=== PATIENT | female | born 2000 | race Caucasian/White ===

== ENCOUNTER 2019-01-15 19:41 | Emergency (ER) | payer BC ==
--- NOTE | 2019-01-15 19:43 | PDOC ---
History of Present Illness - General Chief Complaint: Pain Stated Complaint: FLANK PAIN RADIATING TO RIGHT SIDE X 1 WEEK Time Seen by Provider: 01/15/19 19:43 *DC/Admit/Observation/Transfer - Discharge Dispostion Condition at time of disposition: Stable - Referrals - Patient Instructions - Post Discharge Activity
[2019-01-15 19:55] VITALS: BP 138/93; PULSE 92; TEMP 98.7; BMI 19.5
[2019-01-15 20:02] LABS: EPITHELIAL CELLS MODERATE /hpf
--- NOTE | 2019-01-16 00:19 | PDOC ---
Documentation entered by Gricelda Loaiza SCRIBE, acting as scribe for Cathy Goff MD. Cathy Goff MD: This documentation has been prepared by the jamileJosse Aiswarya, SCRIBE, under my direction and personally reviewed by me in its entirety. I confirm that the documentation accurately reflects all work, treatment, procedures, and medical decision making performed by me. History of Present Illness - General Chief Complaint: Pain Stated Complaint: FLANK PAIN RADIATING TO RIGHT SIDE X 1 WEEK Time Seen by Provider: 01/15/19 19:43 - History of Present Illness Initial Comments: 01/15/19 21:14 The patient is a 19 year old female, with no significant PMH, who presents to the emergency department with abdominal pain that began one week ago. The patient states abdominal pain began on the left upper quadrant for 3 days but pain currently moved to the right upper quadrant radiating to the back. She describes pain as constant, sharp, and sore in nature. Patient states pain is exacerbated with movement, no relief with Tylenol. She had a few days of dysuria last week that resolved spontaneously The patient denies fever, chills , nausea, vomiting, diarrhea and constipation.Denies dysuria, frequency, urgency and hematuria currently . Allergies: NKDA Past surgical history: None reported Social history: None reported PCP: None reported Past History - Past Medical History Allergies/Adverse Reactions: Allergies Allergy/AdvReac Type Severity Reaction Status Date / Time No Known Allergies Allergy Verified 01/15/19 19:43 Home Medications: Ambulatory Orders levoFLOXacin [Levaquin -] 500 mg PO DAILY #7 tablet 01/15/19 Review of Systems - Review of Systems Able to Perform ROS?: Yes Comments:: 01/15/19 21:14 GENERAL/CONSTITUTIONAL: No fever or chills. No weakness. HEAD, EYES, EARS, NOSE AND THROAT: No change in vision. No ear pain or discharge. No sore throat. CARDIOVASCULAR: No chest pain or shortness of breath. RESPIRATORY: No cough, wheezing, or hemoptysis. GASTROINTESTINAL:+right side abdomen pain . No nausea, vomiting, diarrhea or constipation. GENITOURINARY: No dysuria, frequency, or change in urination. MUSCULOSKELETAL: No joint or muscle swelling or pain. No neck or back pain. SKIN: No rash NEUROLOGIC: No headache, vertigo, loss of consciousness, or change in strength/ sensation. ENDOCRINE: No increased thirst. No abnormal weight change. HEMATOLOGIC/LYMPHATIC: No anemia, easy bleeding, or history of blood clots. ALLERGIC/IMMUNOLOGIC: No hives or skin allergy. *Physical Exam - Vital Signs Last Vital Signs Temp Pulse Resp BP Pulse Ox 98.7 F 92 H 16 138/93 100 01/15/19 19:46 01/15/19 19:46 01/15/19 19:46 01/15/19 19:46 01/15/19 19:46 - Physical Exam Comments: 01/15/19 21:14 GENERAL: Awake, alert, and fully oriented, in no acute distress HEAD: No signs of trauma LUNGS: Breath sounds equal, clear to auscultation bilaterally. No wheezes, and no crackles HEART: Regular rate and rhythm, normal S1 and S2, no murmurs, rubs or gallops ABDOMEN:+Right upper quadrant flank tenderness without Castro signs. No other tenderness, masses, guarding, or rebound tenderness. Significant marked right CVA tenderness. EXTREMITIES: Normal range of motion, no edema. No clubbing or cyanosis. No cords, erythema, or tenderness NEUROLOGICAL: Cranial nerves II through XII grossly intact. Normal speech, normal gait SKIN: Warm, Dry, normal turgor, no rashes or lesions noted. ED Treatment Course - ADDITIONAL ORDERS Additional order review: Laboratory Results 01/15/19 01/15/19 19:50 19:50 Urine Color Yellow Urine Appearance Clear Urine pH 7.5 Urine Protein Negative Urine Glucose (UA) Negative Urine Ketones Negative Urine Blood 1+ H Urine Nitrite Negative Urine Bilirubin Negative Urine Urobilinogen 0.2 Ur Leukocyte Esterase 1+ Urine RBC 10-20 Urine WBC 20-40 Ur Transition Epith Cell Moderate Urine Bacteria Few Urine HCG, Qual Negative Medical Decision Making - Medical Decision Making As noted above, this 19-year-old girl with no previous medical history presents with persistent right flank/right CVA discomfort . Of note, she had self resolving dysuria last week. She has no dysuria or urinary urgency/frequency now. No previous history of upper tract or lower tract UTI. She has no fever or other systemic signs of infection. Exam as noted above. Urinalysis is performed: Dipstick shows 1+ leukocyte esterase. Microscopic exam notable for 10-20 rbc's/20-40 WBC per high-power field. There are moderate epithelial cells and few bacteria seen on microscopic exam. Sample sent for culture and sensitivity PGU is negative. Clinical presentation consistent with either mild pyelonephritis or early renal colic. Since patient does not have marked pain at this time, kidney stones are less likely especially in light of wbc's/bacteria seen on urinalysis. She will be started on Levaquin 500 mg daily with first dose given here in the emergency room. It is explained to the patient and her mother that she should return to the ER if she has severe pain or develops fever/vomiting. Otherwise, she should follow-up with her general doctor within the next few days. Meanwhile, she should drink plenty of water *DC/Admit/Observation/Transfer Diagnosis at time of Disposition: Pyelonephritis - Discharge Dispostion Disposition: HOME Condition at time of disposition: Stable - Prescriptions Prescriptions: levoFLOXacin [Levaquin -] 500 mg PO DAILY #7 tablet - Referrals - Patient Instructions Printed Discharge Instructions: DI for Kidney Infection Additional Instructions: Levaquin 500 mg daily for the next 7 days Drink plenty of water Tylenol as needed for pain Follow-up with your general doctor within the next 3-4 days Return to ER if you have worsening pain, nausea or vomiting, fever - Post Discharge Activity
== END 2019-01-15 21:19 | disposition home or self-care (01) ==
LOC: FER 19:41
DX: N12 Tubulo-interstitial nephritis, not specified as acute or chronic (principal)
CPT/HCPCS: 81003; 81015; 84703; 87086; 99282-25